=== PATIENT | male | born 1980 ===

== ENCOUNTER 2016-06-18 09:06 | Emergency (ER) | payer OTHER ==
[2016-06-18 09:46] VITALS: BP 126/74
--- NOTE | 2016-06-18 10:46 | UC ---
Respiratory Complaint HPI - HPI Summary HPI Summary: Had very mild cough without other symptoms starting a month ago, says it woudl come for a few days then would be symptom-free for a few days. Sudden onset of fever, worsening cough, trouble breathing, and body aches this weekend. Daughter had the same, went to see PCP yesterday and was diagnosed with respiratory virus and AOM. Pt has had some post-tussive vomiting and says this is a totally new symptom for him. Fevers seem to be decreasing as of yesterday afternoon. - History of Current Complaint Hx Obtained From: Patient Onset/Duration: Gradual Onset, Lasting Weeks Timing: Constant Severity Initially: Mild Severity Currently: Moderate Character: Cough: Productive Aggravating Factors: Deep Breaths, Recumbent Position Alleviating Factors: Upright Position Associated Signs And Symptoms: Positive: Fever, Chills, Wheezing, Nasal Congestion <Amanda Corona - Last Filed: 06/18/16 10:43> <Josefina Grove - Last Filed: 06/18/16 11:19> - History of Current Complaint Chief Complaint: UCRespiratory Stated Complaint: COUGH,CONGEST,FEVER Time Seen by Provider: 06/18/16 10:10 - Allergies/Home Medications Allergies/Adverse Reactions: Allergies Allergy/AdvReac Type Severity Reaction Status Date / Time No Known Allergies Allergy Verified 06/18/16 09:40 Home Medications: Home Medications Cold & Cough 12 Hr 2 tab PO 06/18/16 [History] PMH/Surg Hx/FS Hx/Imm Hx - Surgical History Surgical History: Yes Surgery Procedure, Year, and Place: TONSILS-CHILD - Family History Known Family History: Positive: Hypertension - Social History Lives: With Family Alcohol Use: Daily Substance Use Type: None Smoking Status (MU): Never Smoked Tobacco <Amanda Corona - Last Filed: 06/18/16 10:43> Review of Systems Constitutional: Fever, Chills, Fatigue Skin: Negative Eyes: Negative ENT: Negative Respiratory: Shortness Of Breath, Cough Cardiovascular: Negative Gastrointestinal: Negative Genitourinary: Negative Motor: Negative Neurovascular: Negative Musculoskeletal: Negative Neurological: Negative Psychological: Negative All Other Systems Reviewed And Are Negative: Yes <Amanda Corona - Last Filed: 06/18/16 10:43> Physical Exam Triage Information Reviewed: Yes Appearance: Well-Appearing, No Pain Distress, Well-Nourished Vital Signs: Initial Vital Signs Temp 97.8 F 06/18/16 09:41 Pulse 87 06/18/16 09:41 Resp 18 06/18/16 09:41 BP 126/74 06/18/16 09:41 Pulse Ox 98 06/18/16 09:41 Vital Signs Reviewed: Yes Eye Exam: Normal Eyes: Positive: Conjunctiva Clear ENT: Positive: Hearing grossly normal, Nasal congestion - mild, TMs normal Dental Exam: Normal Neck exam: Normal Neck: Positive: Supple, Nontender, No Lymphadenopathy Respiratory Exam: Other - occ cough Respiratory: Positive: Normal breath sounds, No respiratory distress, No accessory muscle use Cardiovascular Exam: Normal Cardiovascular: Positive: RRR, No Murmur Musculoskeletal Exam: Normal Neurological Exam: Normal Neurological: Positive: Alert Psychological Exam: Normal Skin Exam: Normal <Amanda Corona - Last Filed: 06/18/16 10:43> Vital Signs: Initial Vital Signs Temp 97.8 F 06/18/16 09:41 Pulse 87 06/18/16 09:41 Resp 18 06/18/16 09:41 BP 126/74 06/18/16 09:41 Pulse Ox 98 06/18/16 09:41 <Josefina Grove - Last Filed: 06/18/16 11:19> UC Diagnostic Evaluation - Laboratory O2 Sat by Pulse Oximetry: 98 <Amanda Corona - Last Filed: 06/18/16 10:43> Respiratory Course/Dx - Differential Dx/Diagnosis Provider Diagnoses: influenza-like illness <Amanda Corona - Last Filed: 06/18/16 10:43> Discharge <Amanda Corona - Last Filed: 06/18/16 10:43> <Josefina Grove - Last Filed: 06/18/16 11:19> - Discharge Plan Condition: Stable Disposition: HOME Prescriptions: Acetaminop/Codeine 30 MG TAB* [Tylenol/Codeine 30 MG TAB*] 1 - 2 tab PO BEDTIME PRN #15 tab MDD 2 PRN Reason: Cough Albuterol HFA INHALER* [Ventolin HFA Inhaler*] 1 - 2 puff INH Q4H PRN #1 mdi PRN Reason: wheeze, cough Benzonatate CAP* [Tessalon 100 MG CAP*] 100 mg PO TID PRN #30 cap PRN Reason: Cough Patient Education Materials: Viral Syndrome (ED) Referrals: Eulogio Stuart MD [Primary Care Provider] - Additional Instructions: It sounds very much like you are getting over influenza or another serious respiratory virus. Though they are very uncomfortable, there is no curative treatment for these viruses -- antibiotics don't help (antibiotics will only kill bacteria, not viruses) and can actually make you sicker. While you may have another day or two of low fevers (under 101F), your fevers should resolve completely early this week. Coughing can take 4 weeks or longer to completely resolve with these illnesses. Call or return if you develop increasing fever, shortness of breath, chest pain , bloody sputum, or otherwise worsen. If you have not improved at all after several days, contact your primary care physician or return here. Attestation Statement User Type: Provider - I was available for consult. This patient was seen by the NAEL. The patient was not presented to, seen by, or examined by me. <Josefina Grove - Last Filed: 06/18/16 11:19>
== END 2016-06-18 10:42 | disposition home or self-care (01) ==
LOC: UCEAST 09:06
DX: J11.1 Influenza due to unidentified influenza virus with other respiratory manifestations (principal)
CPT/HCPCS: 99212; G0463